=== PATIENT | female | born 1940 | race Caucasian/White ===

== ENCOUNTER 2020-08-12 11:54 | Outpatient (RCR) | payer MEDICARE, SELFPAY ==
[2020-08-12] MEDS: COVID-19 VACC, MRNA(PFIZER)/PF 30 MCG/0.3 ML SYRINGE IM (14:06)
[2020-09-02] MEDS: COVID-19 VACC, MRNA(PFIZER)/PF 30 MCG/0.3 ML SYRINGE IM (13:52)
== END 2020-11-08 23:59 ==
LOC: IMMUN 11:54
PROVIDERS: PCP Family Medicine; Visit Provider Family Medicine
DX: Z23 Encounter for immunization (principal)
CPT/HCPCS: 0001A; 0002A; 91300